=== PATIENT | female | born 1990 | race Caucasian/White ===

== ENCOUNTER 2019-09-02 11:34 | Emergency (ER) | payer OTHER ==
[~2019-09-02] VITALS: Ht 160 cm; Wt 102.4 kg
[2019-09-02] MEDS ORDERED: CLAR10CA3 PO (11:41)
[2019-09-02] MEDS ORDERED: FAMO20TA PO (11:41)
[2019-09-02] MEDS ORDERED: DULO1CAP4 PO (11:41)
[2019-09-02 12:39] LABS: HEMATOCRIT 49.7 % (36.0-47.0); HEMOGLOBIN 15.7 g/dl (12.0-15.5); MEAN CORPUSCULAR HEMOGLOBIN 28.9 pg (27.0-33.0); MEAN CORPUSCULAR HGB CONC 31.6 g/dl (32.0-36.5); MEAN CORPUSCULAR VOLUME 91.4 fl (80.0-96.0); PLATELET COUNT, AUTOMATED 356 10^3/uL (150-450); RED BLOOD COUNT 5.44 10^6/uL (4.00-5.40)
[2019-09-02 13:03] LABS: HCG, SERUM QUALITATIVE NEGATIVE (NEGATIVE)
[2019-09-02 13:07] LABS: ACETAMINOPHEN LEVEL < 2.0 UG/ML (10.0-30.0); ALBUMIN 4.2 GM/DL (3.2-5.2); ALT/SGPT 29 U/L (12-78); BILIRUBIN,DIRECT 0.2 MG/DL (0.0-0.2); BILIRUBIN,TOTAL 0.6 MG/DL (0.2-1.0); BLOOD UREA NITROGEN 8 MG/DL (7-18); CALCIUM LEVEL 9.8 MG/DL (8.5-10.1); CARBON DIOXIDE LEVEL 31 MEQ/L (21-32); CHLORIDE LEVEL 107 MEQ/L (98-107); ETHYL ALCOHOL (ETHANOL) < 0.003 % (0.000-0.010); GLOMERULAR FILTRATION RATE > 60.0 (>60); GLUCOSE, FASTING 87 MG/DL (70-100); POTASSIUM SERUM 3.6 MEQ/L (3.5-5.1); SALICYLATE LEVEL < 1.7 MG/DL (5.0-30.0); SODIUM LEVEL 141 MEQ/L (136-145); TOTAL PROTEIN 9.2 GM/DL (6.4-8.2)
[2019-09-02 13:09] LABS: AMPHETAMINES LEVEL URINE NEGATIVE (NEGATIVE); BARBITURATES URINE NEGATIVE (NEGATIVE); BENZODIAZEPINES URINE NEGATIVE (NEGATIVE); CANNABINOIDS URINE NEGATIVE (NEGATIVE); COCAINE METABOLITE URINE NEGATIVE (NEGATIVE); METHADONE URINE NEGATIVE (NEGATIVE); OPIATES URINE NEGATIVE (NEGATIVE); PHENCYCLIDINE URINE NEGATIVE (NEGATIVE)
[2019-09-02] MEDS ORDERED: TOPI25TA10 PO (14:50)
--- NOTE | 2019-09-02 19:34 | ECGEPIP ---
[facility] - ED Test Date: 2019-09-02 Pat Name: ZAMZAM BROWNLEE Department: Room: - Gender: Female Manager Social Media: ALEX : 1990 Requested By: RONALDO RINCON Order Number: [id number] Reading MD: Valentin Acosta Measurements Intervals [place] Rate: 71 P: -1 [place]: 158 QRS: 9 QRSD: 89 T: 51 QT: 386 QTc: 420 Interpretive Statements SINUS RHYTHM NONSPECIFIC ST T WAVE CHANGES DELAYED R WAVE PROGRESSION NO PRIOR ECG FOR COMPARISON Electronically Signed on 09-02-2019 19:34:05 EST by Valentin Acosta
[2019-09-03 06:30] VITALS: BP 137/82
[2019-09-03] MEDS ORDERED: TOPIRAMATE (TopAMAX) 25 MG TAB PO PRN (07:30)
[2019-09-03] MEDS ORDERED: LORATADINE 10 MG TAB PO SCH (09:00)
[2019-09-03] MEDS ORDERED: DULoxetine 20 MG CAP (CYMBALTA) PO SCH (09:00)
[2019-09-03] MEDS ORDERED: FAMOTIDINE 20 MG TAB PO SCH (09:00)
--- NOTE | 2019-09-03 15:02 | ED PDOC ---
Provider Note Consult Rebekah Early MRN: N/A Date of : N/A Date of Service: 09/03/2019 Chief Complaint "I am feeling much better now." History of Present Illness The patient a 28-year-old woman presents after reportedly having difficulty with various stressors, conflict with her family. She reports that various members of her family are intrusive and overly concerned with her. She reports that she felt this was quite stifling and had felt suicidal thoughts for a short time. She became concerned as she chronically has suicidal thoughts but had noticed that she was worried of acting on them, presented to the ER by herself, they had gotten worse. She presented for herself where she reported that she wanted help. After a weekend of observation, the patient reported that she had felt much better and that in the ER was calm and serene enough that she could reflect on her situation, and had improved. she is on Cymbalta 20 which is helpful for her. She reports that she knows "when she is feeling suicidal and when she might act on it, but she has had reportedly 12 months' of time and came in when she was concerned but feels that she has returned to her baseline. Review Of Systems Depression: Patient reports episodes of low mood. Denies having any significant mood associated with neurovegetative symptoms. Anxiety: The patient denies any excessive worry associated with physical symptoms. They deny any experience of discreet panic in the past. [place]ío: The patient denies any episodes of euphoria/dysphoria associated with decreased need for sleep, hedonism, talkatively or impulsivity lasting longer than 5 days. Psychotic: The patient denies any experiences of auditory or visual hallucinations. They deny any episodes of paranoia or delusional thinking in the past Trauma: The patient denies any traumatic events associated with nightmares or intrusive thoughts. Borderline: The patient screens negative for borderline personality at this junction. Past Psychiatric History The patient reports being admitted to some psychiatric hospitals in the past but has been not hospitalized in the last 12 months. Patient reports a diagnosis of depression. Patient reports suicide attempts many years ago by overdose, currently following up [facility] wellness Family Psychiatric History Report some history of mental health but is unable to elucidate. Social History The patient reports that she currently lives alone but has a very involved family. She recently broke up with her boyfriend recently, family who reports is somewhat stifling at times. She reports that she had previously been to her for 9 years but subsequently after severals having being at odds in the marriage. She reports that she smokes tobacco at times but denies any alcohol. Toxicology negative on her admission. Medical History Patient has no significant past medical history. Allergies See below Mental Status Examination General: Well dressed with good hygiene Speech: Spontaneous and fluid Thought processes: Linear and logical MSK: Smooth and coordinated gait, no signs of tremors or involuntary orofacial movements Thought content: Future orientated Abstract reasoning, and computation: Intact Description of associations: Intact Description of abnormal or psychotic thoughts: Denies any suicidal or homicidal ideation. Denies any auditory or visual hallucinations. Does not appear to be responding to internal stimuli. Does not appear to be endorsing any bizarre or paranoid ideation. Judgment: fair Insight: fair Orientation: Alert and orientated 3 Cognition: Grossly normal Recent and remote memory: Intact Attention span and concentration: Intact Fund of knowledge: Adequate Mood: "okay" Affect: Euthymic with a full range Diagnoses Situational disturbance Assessment and Plan The patient a 28-year-old woman with history of possibly some depression presents after a situation disturbance after interactions with her family. She had been observed over the weekend for several days where her suicidality had improved and vanished by the time I had come to see her to reexamine her for potential discharge. She declines wanting to come to our inpatient unit and declines a voluntary admission, on assessment of whether she meets involuntary criteria, I do not feel she right here at this time she has a normal mental status exam, has had 12 months of stability and has been doing quite well. She had self presented, demonstrating a good sense her symptoms and is quite educated in care of herself. The patient additionally is cooperative and otherwise compliant with her medicine, thius she must be discharged in good [place]. Disposition discharge to home Time Spent 30 minutes. Tuesday TRACEY BAUTISTA DO Sep 03, 2019 15:02
== END 2019-09-03 16:15 | disposition home or self-care (01) ==
LOC: M ED 11:34
DX: F43.0 Acute stress reaction (principal); K21.9 Gastro-esophageal reflux disease without esophagitis; Z63.0 Problems in relationship with spouse or partner; Z63.8 Other specified problems related to primary support group; Z88.0 Allergy status to penicillin; Z91.5 Personal history of self-harm
CPT/HCPCS: 80048; 80076; 80307; 84443; 84703; 85027; 93005; 99284; G0480

== ENCOUNTER → 2020-06-16 | Outpatient (CLI) | payer OTHER ==
[~2020-06-16] MED LIST: CLAR10CA3 PO; DULO1CAP4 PO; FAMO20TA PO; TOPI25TA10 PO
[2020-06-16 13:36] LABS: ALBUMIN 3.7 GM/DL (3.2-5.2); ALT/SGPT 33 U/L (12-78); BILIRUBIN,TOTAL 0.5 MG/DL (0.2-1.0); BLOOD UREA NITROGEN 9 MG/DL (7-18); CALCIUM LEVEL 9.5 MG/DL (8.5-10.1); CARBON DIOXIDE LEVEL 26 MEQ/L (21-32); CHLORIDE LEVEL 108 MEQ/L (98-107); CREATININE FOR GFR 0.98 MG/DL (0.55-1.30); FREE T4 0.84 NG/DL (0.76-1.46); GLOMERULAR FILTRATION RATE > 60.0 (>60); GLUCOSE, FASTING 83 MG/DL (70-100); POTASSIUM SERUM 3.8 MEQ/L (3.5-5.1); SODIUM LEVEL 140 MEQ/L (136-145)
== END ==
LOC: M LAB 10:01
PROVIDERS: ATTEND Psychiatry & Neurology Psychiatry
DX: F31.81 Bipolar II disorder (principal); Z79.899 Other long term (current) drug therapy

== ENCOUNTER 2020-11-28 21:28 | Emergency (ER) | payer OTHER ==
[~2020-11-28] VITALS: Ht 160 cm; Wt 110.2 kg
[2020-11-28] MEDS ORDERED: DULO1CAP6 (21:38)
[2020-11-28] MEDS ORDERED: DIVA500T94 (21:38)
[2020-11-28] MEDS ORDERED: BUSP10TA (21:38)
[2020-11-28] MEDS ORDERED: predniSONE 20 MG TAB PO ONE (21:55)
[2020-11-28] MEDS ORDERED: ALBUTEROL 90 MCG/ACT 8GM HFA INHALER INH ONE (21:55)
[2020-11-28 22:18] LABS: BASO % 0.3 % (0.0-1.0); EOS % 0.1 % (0.0-3.0); HEMATOCRIT 40.4 % (36.0-47.0); HEMOGLOBIN 13.2 g/dl (12.0-15.5); LYMPH # 1.3 10^3/uL (1.5-5.0); MEAN CORPUSCULAR HEMOGLOBIN 30.7 pg (27.0-33.0); MEAN CORPUSCULAR HGB CONC 32.7 g/dl (32.0-36.5); MONO # 0.5 10^3/uL (0.0-0.8); MONO % 6.8 % (2.0-8.0); NEUTROPHILS # 5.6 10^3/uL (1.5-8.5); NEUTROPHILS % 74.5 % (36.0-66.0); PLATELET COUNT, AUTOMATED 207 10^3/uL (150-450); WHITE BLOOD COUNT 7.5 10^3/uL (4.0-10.0)
[2020-11-28 22:40] LABS: BLOOD UREA NITROGEN 7 MG/DL (7-18); CALCIUM LEVEL 9.2 MG/DL (8.5-10.1); CARBON DIOXIDE LEVEL 31 MEQ/L (21-32); CHLORIDE LEVEL 106 MEQ/L (98-107); CREATININE FOR GFR 0.87 MG/DL (0.55-1.30); GLOMERULAR FILTRATION RATE > 60.0 (>60); GLUCOSE, FASTING 85 MG/DL (70-100); POTASSIUM SERUM 3.5 MEQ/L (3.5-5.1); SODIUM LEVEL 140 MEQ/L (136-145)
[2020-11-28 22:45] LABS: HCG, SERUM QUALITATIVE NEGATIVE (NEGATIVE)
[2020-11-28] MEDS ORDERED: ACETAMINOPHEN TAB 650MG DOSE (2X325MG) PO ONE (22:55)
--- NOTE | 2020-11-28 23:16 | REPVR ---
PROCEDURE INFORMATION: Exam: XR Chest Exam date and time: 11/28/2020 11:03 PM Age: 30 years old Clinical indication: Other: Dyspnea/cough TECHNIQUE: Imaging protocol: XR of the chest. Views: 1 view. COMPARISON: No relevant prior studies available. FINDINGS: Limitations: Limited by patient's body habitus. Lungs: Unremarkable. No consolidation. Pleural spaces: Unremarkable. No pleural effusion. No pneumothorax. Heart/Mediastinum: Unremarkable. No cardiomegaly. Bones/joints: Unremarkable. IMPRESSION: No acute findings. Electronically signed by: Jalen Allison On 11/28/2020 23:16:03 PM
[2020-11-28] MEDS ORDERED: PRED20TA PO (23:55)
[2020-11-28] MEDS ORDERED: PROAAER10 INH (23:56)
[2020-11-29 00:15] VITALS: BP 106/59
--- NOTE | 2020-11-29 06:30 | ECGEPIP ---
[facility] - ED Test Date: 2020-11-28 Pat Name: ZAMZAM BROWNLEE Department: Room: - Gender: Female Juvenile Officer: CRISTOPHER : 1990 Requested By: JALEN Davis Order Number: [id number] Reading MD: Jalen Hernandez Measurements Intervals [place] Rate: 103 P: 22 SC: 166 QRS: -3 QRSD: 84 T: 33 QT: 340 QTc: 445 Interpretive Statements Sinus tachycardia Nonspecific ST-T wave abnormalities Delayed anterior R wave progression Similar to tracing done 09-02-19 Electronically Signed on 11-29-2020 6:29:53 EDT by Jalen Hernandez
== END 2020-11-29 00:42 | disposition home health service (06) ==
LOC: M ED 21:28
DX: U07.1 COVID-19 (principal); R00.0 Tachycardia, unspecified; K21.9 Gastro-esophageal reflux disease without esophagitis; Z88.0 Allergy status to penicillin; Z79.899 Other long term (current) drug therapy

== ENCOUNTER 2021-03-22 23:56 | Emergency (ER) | payer OTHER ==
[~2021-03-22] VITALS: Ht 157.5 cm; Wt 110.8 kg
[2021-03-22 23:56] VITALS: BP 134/91
[~2021-03-22 23:56] MED LIST changes: +BUSP10TA; +DIVA500T94; +DULO1CAP6; +PRED20TA PO; +PROAAER10 INH
== END 2021-03-23 02:29 | disposition left against medical advice (07) ==
LOC: M ED 23:56
DX: Z53.21 Procedure and treatment not carried out due to patient leaving prior to being seen by health care provider (principal)